=== PATIENT | female | born 1995 | race African-American/Black ===

== ENCOUNTER 2018-08-31 04:04 | Emergency (ER) | payer MEDICAID, OTHER ==
[~2018-08-31] VITALS: Ht 160 cm; Wt 49.9 kg
[2018-08-31 04:15] VITALS: BP 132/78
[2018-08-31 04:53] LABS: BILIRUBIN,URINE NEGATIVE (NEG); CLARITY,URINE CLEAR; COLOR,URINE YELLOW; NITRITE,URINE NEGATIVE (NEG); PH,URINE 5.5; PROTEIN,URINE NEGATIVE (NEG-TRACE); UROBILINOGEN,URINE 0.2 mg/dL (0.2 mg/dL)
[2018-08-31 05:00] LABS: BACTERIA,URINE FEW /HPF (0-FEW); RBC,URINE OCC /HPF (0-2); SQUAMOUS EPITHELIAL CELL,UR MOD /LPF; WBC,URINE OCC /HPF (0-4)
== END 2018-08-31 04:52 | disposition left against medical advice (07) ==
LOC: ER 04:04
DX: M79.604 Pain in right leg (principal); R20.2 Paresthesia of skin; Z53.21 Procedure and treatment not carried out due to patient leaving prior to being seen by health care provider
CPT/HCPCS: 81001; 81025

== ENCOUNTER → 2021-08-26 | Outpatient (CLI) | payer MEDICAID, OTHER ==
--- NOTE | 2021-08-26 16:32 | KCIC ---
EXAM: Brain MRI without contrast. HISTORY: Migraine. Anesthesia. TECHNIQUE: Multiplanar, multisequence magnetic resonance imaging of the brain was performed without c ontrast. COMPARISON: None. FINDINGS: There is no restricted diffusion to suggest acute or subacute infarction. There is no susce ptibility effect to suggest hemorrhage. There is no mass effect or midline shift. There is no hydroce phalus. There is no suspicious white matter lesion. The orbits are unremarkable. There are tiny sphenoid sinus mucous retention cysts. The mastoid air ce lls are clear. There is a 2.0 cm T2 hyperintense and T1 hypointense lesion containing curvilinear T2 hypointense structures likely due to vessels within the right search director space, likely representing a hemangioma. There is a hypoplastic distal left vertebral artery, a normal variant. There are normal flow voids wi thin the cerebral vessels. There is no suspicious calvarial lesion. IMPRESSION: 1. No acute intercranial finding. 2. Suspected incidental hemangioma within the right search director space. Electronically signed by: Cora De MD (08/26/2021 4:30 PM) [id number]
== END ==
LOC: KCIC MRI 15:19
PROVIDERS: ATTEND Psychiatry & Neurology Neurology with Special Qualifications in Child Neurology
DX: J34.1 Cyst and mucocele of nose and nasal sinus (principal); G43.809 Other migraine, not intractable, without status migrainosus; R20.0 Anesthesia of skin; R20.2 Paresthesia of skin
CPT/HCPCS: 70551